=== PATIENT | male | born 1960 | race Caucasian/White ===

== ENCOUNTER 2023-07-28 09:28 | Day surgery (SDC) | payer BC ==
[2023-07-24 09:00] VITALS: BMI 26.4
[~2023-07-28 09:28] MED LIST: LIDOCAINE 1% (10MG/ML) FOR IV START INTRADERMA PRN
[2023-07-28] MEDS ORDERED: SODIUM CHLORIDE 0.9% 1,000 ML IV ONE (09:57)
[2023-07-28] MEDS ORDERED: PROPOFOL 10 MG/ML 20 ML VIAL IV ONE (11:44)
[2023-07-28] MEDS ORDERED: SUCCINYLCHOLINE CHLORIDE 200 MG/10 ML VIAL IV ONE (11:44)
[2023-07-28] MEDS ORDERED: LIDOCAINE 2% INJ 20 MG/ML (2 ML VIAL) ONE (11:44)
[2023-07-28] MEDS ORDERED: PHENYLEPHRINE-0.9% NACL SYG 1,000 MCG/10 ML SYRINGE ONE (11:44)
[2023-07-28] MEDS ORDERED: MIDAZOLAM 2 MG/2 ML VIAL ONE (11:44)
[2023-07-28] MEDS ORDERED: ATROPINE SULFATE 0.4 MG/ML 1 ML VIAL ONE (11:44)
[2023-07-28] MEDS ORDERED: fentaNYL (PF) 50 MCG/ML 2 ML AMP ONE (11:44)
[2023-07-28] MEDS ORDERED: HEPARIN SOD,PORK IN 0.45% NACL 25,000 UNIT in 0.45% NACL 1 250ML.BAG IV ONE (11:54)
--- NOTE | 2023-07-28 12:17 | P.HPCAR ---
History of Present Illness This is Dr. Wyatt dictating an H/P on this patient The patient was interviewed and examined IMPRESSION / ASSESSMENT: Persistent atrial fibrillation, symptomatic Plan electrical cardioversion on amiodarone Treated with oral amiodarone Normal TSH Normal coronary arteries with normal LVEDP and preserved systolic function Mild obstructive sleep apnea PLAN: Ablation for persistent symptomatically atrial fibrillation Discontinue amiodarone given its long-term side effects Continue anticoagulation HPI Patient has recurrent episodes of atrial fibrillation which is symptomatic with shortness of breath and fatigue on exertion He is undergone treatment for this with electrical cardioversions and oral amiodarone He was recently treated for sinusitis with oral antibiotics and is doing well now without any fever chills cough expectoration or any undue shortness of breath ROS: No fever chills or rigors, no cough, phlegm or expectoration, no nausea, vomiting or diarrhea, no hematuria, dysuria, no musculoskeletal complaints, no strokes or seizures, no skin lesions. EXAMINATION: 136/90 mmHg pulse rate in the 60s afebrile Breath sounds are clear Heart sounds S2 normal no murmurs or gallops Abdomen soft Extremities warm no edema REVIEW OF LABS, ECG & MEDICAL DATA Normal TSH 1.34 Physical Exam Vitals: Vital Signs Temp Pulse Resp BP Pulse Ox 07/28/23 10:12 97.9 F 66 16 136/90 97 Intake and Output 07/27/23 07/28/23 07/28/23 22:59 06:59 14:59 Intake Total 100 Balance 100 Intake: IV 100 Other: Weight 87.3 kg Past Medical History Past Medical History: Atrial Fibrillation, Osteoarthritis (OA), Sleep Apnea/CPAP/BIPAP, Thyroid Disorder Additional Past Medical History / Comment(s): mild sleep apnea (no machine), hypothyroid, see Cardiology H & P. History of Any Multi-Drug Resistant Organisms: None Reported Past Surgical History: Heart Catheterization, Hernia Repair, Tonsillectomy Additional Past Surgical History / Comment(s): vasectomy, arthroscopy right knee , colonoscopy. Past Anesthesia/Blood Transfusion Reactions: No Reported Reaction Past Psychological History: No Psychological Hx Reported Smoking Status: Never smoker Past Alcohol Use History: Occasional Past Drug Use History: None Reported Physical Examination Vital Signs Temp Pulse Resp BP Pulse Ox 07/28/23 10:12 97.9 F 66 16 136/90 97 Intake and Output 09/03/1507/28/23 07/28/23 22:59 06:59 14:59 Intake Total 100 Balance 100 Intake: IV 100 Other: Weight 87.3 kg Results Current Medications Generic Name Dose Route Start Last Admin Trade Name Frelupe PRN Reason Stop Dose Admin Sodium Chloride 1,000 mls @ 20 mls/hr 07/28/23 05:44 Saline 0.9% IV 08/27/23 05:45 .Q24H MICHELLE Lactated Ringer's 1,000 mls @ 20 mls/hr 07/28/23 05:44 Lactated Ringers IV 08/27/23 05:45 .Q24H MICHELLE Lidocaine HCl 0.1 ml 07/28/23 05:44 Lidocaine 1% (10mg/Ml) For Iv Start INTRADERMA 08/27/23 05:45 PER PROTOCOL PRN IV Start Intake and Output 07/27/23 07/28/23 07/28/23 22:59 06:59 14:59 Intake Total 100 Balance 100 Intake: IV 100 Other: Weight 87.3 kg Patient Weight 07/29/23 06:59 Weight 87.3 kg
[2023-07-28] MEDS ORDERED: LIDOCAINE 1% INJ 10MG/ML (20 ML MDV) SQ ONE (12:32)
[2023-07-28] MEDS ORDERED: LACTATED RINGERS 1,000 ML IV ONE (14:00)
[2023-07-28] MEDS ORDERED: IOPAMIDOL-370 100ML BTL INJ ONE (14:34)
[2023-07-28] MEDS ORDERED: ACETAMINOPHEN TAB 325 MG TAB PO PRN ×2 (15:12→17:17)
[2023-07-28] MEDS ORDERED: ACETAMINOPHEN IV (For NPO) 1,000 MG in EMPTY BAG 1 BAG IVPB ONE ×2 (15:30→17:30)
--- NOTE | 2023-07-28 15:36 | P.EPPROC ---
- EP Procedure Note Electrophysiology Procedure Note: PROCEDURE Persistent A. fib ablation DIAGNOSIS Persistent Atrial fibrillation, symptomatic, refractory to therapy RESULT No left atrial appendage mass seen on intracardiac echo, mildly prominent pericardial stripe over left ventricle Successful A. fib ablation/pulmonary vein isolation of all veins using cryo- ablation Complete entrance block in all 4 veins confirmed No evidence for phrenic nerve injury Left atrial roof ablation with serial cryoablation's Left atrial septal ablation Esophageal deflection YES, left-sided esophagus PROCEDURE DETAILS Written informed consent prior to procedure. Patient brought to the EP lab. General anesthesia given. Heparin administered. A city maintained above 300 seconds Both groins prepped and draped per protocol and venous sheaths placed. Esophagus intubated, circa catheter for temperature monitoring an endoscope for possible esophageal deflection. Phrenic nerve monitoring performed. Esophageal temperature monitoring performed. Esophageal deflection performed if circa catheter overlapping with the balloon or circa temperature less than 27.5C Intracardiac echocardiography performed. Pericardium evaluated. Left atrial appendage evaluated. Left atrium evaluated along with pulmonary veins Transseptal catheterization performed under fluoroscopic guidance and intracardiac echo guidance Cryoablation sheath exchanged, balloon catheter along with achieve catheter placed in the left atrium. Pulmonary veins isolated in the following sequence: Left superior pulmonary vein followed by left inferior pulmonary vein, followed by right inferior pulmonary vein and lastly right superior pulmonary vein. Phrenic nerve stimulation along with capture thresholds within the SVC and right superior pulmonary vein to identify the phrenic nerve proximity to the cryo- balloon. Pulmonary veins isolated and confirmed with entrance and exit block. Phrenic nerve integrity confirmed at the end of the procedure Ablation of the left atrial roof performed with sequential lesions from the left superior to the right superior pulmonary veins. Ablation of the electrograms confirmed Ablation of the left atrial septum performed with cannulation of the superior branch of the right inferior or the inferior branch of the right superior vein to achieve ablation of the posterior septum of the left atrium. Ablation of electrograms confirmed Diagnostic catheters for the high right atrium, His bundle, coronary sinus placed. LA and RA pressures recorded RA pressure: 05/07/11 LA pressure: 07/04/11 Diagnostic EP study with coronary sinus pacing and recording Baseline measurements: Sinus cycle length 751 ms, AK interval 148 ms, QRS 93 ms. QT 421 ms AH 84 and HV 48 ms Sinus node recovery times are 946, 993 and 1023 AV node Wenckebach block 360 ms Venous sheaths were removed and hemostasis assured with a closure device. Patient extubated and transferred to recovery PROCEDURES PERFORMED Diagnostic EP study CS pacing and recording Left and right transseptal catheterization Catheter the mapping of the tachycardia Intracardiac echocardiography Pulmonary vein isolation with transseptal and comprehensive EPS, [id number] Left atrial roof line, +[id number] Linear ablation, left atrium, +[id number]
[2023-07-28] MEDS: LACTATED RINGERS 1,000 ML IV SCH (17:11)
[2023-07-28] MEDS: SODIUM CHLORIDE 0.9% 1,000 ML IV SCH (17:12)
[2023-07-28] MEDS: APIXABAN 5 MG TAB PO SCH (20:22)
[2023-07-29 03:02] VITALS: TEMP 98.1
[2023-07-29] MEDS: LACTATED RINGERS 1,000 ML IV SCH (05:43)
[2023-07-29] MEDS ORDERED: LEVOTHYROXINE 100 MCG TAB PO SCH (06:30)
[2023-07-29] MEDS ORDERED: COLCHICINE 0.6 MG EACH PO ONE (07:37)
[2023-07-29] MEDS: SODIUM CHLORIDE 0.9% 1,000 ML IV SCH (07:54)
--- NOTE | 2023-07-29 08:31 | DS ---
DISCHARGE SUMMARY Melo Barrera is a 63-year-old male patient with persistent atrial fibrillation. He underwent an atrial fibrillation ablation yesterday with pulmonary vein isolation and ablation within the left atrium in the roof and in the left atrial septum. Amiodarone was discontinued prior to the ablation and the patient was recommended to stay off amiodarone completely. He maintains sinus rhythm today and EKG is normal. Blood pressure is stable. Heart rates are normal. Mild discomfort in the chest, especially in the throat. This is expected. He has no dysphagia. On examination, heart sounds are normal. No rub. No gallop. Breath sounds are clear. No rhonchi. No crackles. Groins have healed well. No hematoma. He is lying comfortably in bed. He has been ambulating to the bathroom. IMPRESSION: Persistent atrial fibrillation, status post AF ablation. PLAN: Continue Eliquis for 3 months. Continue levothyroxine. The patient is on multiple other pills whose actions are unclear to me. However, he is on iodine only. I specifically asked him to stop taking iodine and the patient understands. He will see his primary citrus fruit colorer, Dr. Echols in followup. MMODL / IJN: [id number] /
[2023-07-29] MEDS: APIXABAN 5 MG TAB PO SCH (08:56)
[2023-07-29] MEDS ORDERED: LITHIUM PO SCH (09:00)
[2023-07-29 09:30] VITALS: BP 116/77; PULSE 70; RESP 16
== END 2023-07-29 13:32 | disposition home or self-care (01) ==
LOC: CATHEP 09:28 → 6NMEDSUR 14:46 → CATHEP 07-29 13:32
PROVIDERS: ATTEND Internal Medicine Clinical Cardiac Electrophysiology
DX: I48.19 Other persistent atrial fibrillation (principal); M19.90 Unspecified osteoarthritis, unspecified site; E03.9 Hypothyroidism, unspecified; G47.33 Obstructive sleep apnea (adult) (pediatric); F10.90 Alcohol use, unspecified, uncomplicated; Z98.890 Other specified postprocedural states; Z79.890 Hormone replacement therapy; Z79.01 Long term (current) use of anticoagulants; Z79.899 Other long term (current) drug therapy
CPT/HCPCS: 93656; 93657; 86900; 86901; 84443; 86850; J2001; J0131; Q9967; J1644